=== PATIENT | female | born 1980 | race Caucasian/White ===

== ENCOUNTER 2017-01-04 18:40 | Emergency (ER) | payer MEDICAID, OTHER ==
[~2017-01-04] VITALS: Ht 170.2 cm; Wt 137.5 kg
[~2017-01-04 18:40] MED LIST: AMOX1TAB10 PO; PSEU120T51 PO
[2017-01-04 18:43] VITALS: Ht 170.2 cm; Wt 137.5 kg
[2017-01-04] MEDS ORDERED: ONDANSETRON (ODT) 4 MG TAB ODT STA (19:54)
--- NOTE | 2017-01-04 20:09 | ERD ---
ER Documentation Chief Complaint Date/Time DATE: 01/04/17 TIME: 20:08 Chief Complaint LUQ abd pain x 2 days HPI 36-year-old female presents here in emergency department for complaints of left upper quadrant abdominal pain 2 days. Patient described the pain as sharp pain, 6/10 scale, is her eating accompanied with nausea. Patient denies any vomiting. Patient denies any fever or chills. Patient does not have any diarrhea or constipation. ROS All systems reviewed and are negative except as per history of present illness. Medications Home Meds Active Scripts Pseudoephedrine Hcl (Sudafed 12 Hour) 120 Mg Tablet.sa, 120 MG PO BID for 3 Days Prov:ANTELMO SHEPHERD PA-C 08/19/15 Amox Tr/Potassium Clavulanate (Amox Tr-K Clv 875-125 Mg Tab) 1 Tab Tablet, 1 TAB PO BID, #14 TAB Prov:ANTELMO SHEPHERD PA-C 08/19/15 Allergies Allergies: Coded Allergies: No Known Allergy (Unverified , 01/04/17) PMhx/Soc Medical and Surgical Hx: pt denies Medical Hx, pt denies Surgical Hx History of Surgery: No Anesthesia Reaction: No Hx Neurological Disorder: No Hx Respiratory Disorders: No Hx Cardiac Disorders: No Hx Psychiatric Problems: No Hx Miscellaneous Medical Probl: No Hx Alcohol Use: No Hx Substance Use: No Hx Tobacco Use: No FmHx Family History: No coronary disease, No diabetes, No other Physical Exam Vitals Vital Signs Date Time Temp Pulse Resp B/P Pulse Ox O2 Delivery O2 Flow Rate FiO2 01/04/17 18:43 97.6 88 20 129/71 99 Physical Exam GENERAL: The patient is well developed and appropriate for usual state of health, in no apparent distress. CHEST: Clear to auscultation bilaterally. There are no rales, wheezes or rhonchi. HEART: Regular rate and rhythm. No murmurs, clicks, rubs or gallops. No S3 or S4. ABDOMEN: Soft, nontender and nondistended. Good bowel sounds. No rebound or guarding. No gross peritonitis. No gross organomegaly or masses. No Boggs sign or McBurney point tenderness. BACK: No midline or flank tenderness. EXTREMITIES: Equal pulses bilaterally. There is no peripheral clubbing, cyanosis or edema. No focal swelling or erythema. Full range of motion. Grossly neurovascularly intact. NEURO: Alert and oriented. Cranial nerves 2-12 intact. Motor strength in all 4 extremities with 5/5 strength. Sensation grossly intact. Normal speech and gait. SKIN: There is no apparent rash or petechia. The skin is warm and dry. HEMATOLOGIC AND LYMPHATIC: There is no evidence of excessive bruising or lymphedema. No gross cervical, axillary, or inguinal lymphadenopathy. Result Diagram: 01/04/17201901/04/172019 Results 24 hrs Laboratory Tests Test 01/04/17 20:20 White Blood Count 8.810^3/ul Red Blood Count 4.8010^6/ul Hemoglobin 12.3g/dl Hematocrit 39.6% Mean Corpuscular Volume 82.5fl Mean Corpuscular Hemoglobin 25.6pg Mean Corpuscular Hemoglobin Concent 31.1g/dl Red Cell Distribution Width 14.5% Platelet Count 10410^3/UL Mean Platelet Volume 11.7fl Neutrophils % 40.0% Lymphocytes % 45.9% Monocytes % 8.6% Eosinophils % 5.0% Basophils % 0.3% Nucleated Red Blood Cells % 0.0/100WBC Neutrophils # 3.510^3/ul Lymphocytes # 4.110^3/ul Monocytes # 0.810^3/ul Eosinophils # 0.410^3/ul Basophils # 0.010^3/ul Nucleated Red Blood Cells # 0.010^3/ul Urine Color RANDEE Urine Clarity SLIGHTLY CLOUDY Urine pH 5.0 Urine Specific [place] 1.030 Urine Ketones TRACEmg/dL Urine Nitrite NEGATIVEmg/dL Urine Bilirubin NEGATIVEmg/dL Urine Urobilinogen 2+mg/dL Urine Leukocyte Esterase NEGATIVELeu/ul Urine Microscopic RBC > 182/HPF Urine Microscopic WBC 1/HPF Urine Mucus FEW/HPF Urine Hemoglobin 3+mg/dL Urine Glucose NEGATIVEmg/dL Urine Total Protein NEGATIVEmg/dl Sodium Level 140mmol/L Potassium Level 3.8mmol/L Chloride Level 105mmol/L Carbon Dioxide Level 27mmol/L Anion Gap 12 Blood Urea Nitrogen 9mg/dl Creatinine 0.55mg/dl Glucose Level 79mg/dl Calcium Level 9.5mg/dl Total Bilirubin 0.0mg/dl Direct Bilirubin 0.00mg/dl Indirect Bilirubin 0.0mg/dl Aspartate Amino Transf (AST/SGOT) 18IU/L Alanine Aminotransferase (ALT/SGPT) 24IU/L Alkaline Phosphatase 67IU/L Total Protein 7.5g/dl Albumin 4.0g/dl Globulin 3.50g/dl Albumin/Globulin Ratio 1.14 Lipase 64U/L Current Medications Medications (Trade) Dose Ordered Sig/Juana Route PRN Reason Start Time Stop Time Status Last Admin Dose Admin Ondansetron HCl (Zofran Odt) 4 mg ONCE STAT ODT 01/04/17 19:54 01/04/17 19:55 DC 01/04/17 20:22 Miscellaneous Medication (Gi Cocktail (2)) 40 ml ONCE ONCE PO 01/04/17 21:30 01/04/17 21:31 DC 01/04/17 21:27 Patient was given Zofran here in the emergency department. After treatment, patient was able to tolerate po fluids here in the emergency department without any vomiting. There is no signs and symptoms of dehydration. PROCEDURE: Right upper quadrant abdominal ultrasound. CLINICAL INDICATION: Abdominal pain TECHNIQUE: Clark scale and color doppler ultrasound images of the right upper quadrant of the abdomen. COMPARISON: None FINDINGS: Pancreas: Not adequately visualized due to overlying bowel gas. Liver: Morphology: The right lobe of the liver is elongated measuring up to 19.3 cm which may reflect Kelsie's lobe configuration. Contour:Normal, no evidence of nodularity. Echogenicity: Increased Focal lesions:None. Main portal vein: Patent with hepatopetal flow. Biliary System: Gallbladder wall: Normal thickness. Gallstones: None. Intrahepatic bile ducts: Normal caliber. Common bile duct diameter (mm): 2.1 Kidneys: Right length (cm) : 11.8 Right cortical thickness: Normal. Echogenicity: Normal. Hydronephrosis: None. Renal calculi: None. Focal lesions: None. Free fluid/ascites: None. Abdominal aorta: No radiographic evidence of tuberculosis infection. Other findings: None. IMPRESSION: Normal gallbladder without gallstones. Increased echogenicity of the liver parenchyma suggestive of hepatic steatosis. RPTAT: AADD .Amaury Ledesma MD, MD Date Time Electronically viewed and signed by .Amaury Ledesma MD, on 01/04/2017 20:53 .B/ CC: TYRELL BLUE NP Procedures/MDM Medical Decision Making: Patient's symptoms suspect is consistent with gastritis. Liver function tests are normal, lipase is normal, ultrasound does not show any gallbladder stones. No symptoms of any perforation. Pain is controlled.There is low suspicion for abdominal emergencies at this time. Patients abdominal exam is normal at this time. Patients radiology exam does not show any abdominal emergencies at this time. There is low suspicion for appendicitis, cholecystitis, abdominal aortic aneurysms or peritonitis at this time. There is low suspicion for sepsis. Patient appears well and is hemodynamically stable. Disposition: Home. Condition: Stable Prescription mylanta, omeprazole, tramadol, Zofran Instructions: Patient is advised to take medications as prescribed. Patient is advised to rest, increase fluid intake and do brat diet for next 1-2 days and progress as tolerated. Patient is advised that if symptoms are worse, severe abdominal pain, uncontrolled vomiting, high fever, severe flank pain, worst signs and symptoms, to return to the emergency department immediately. Otherwise, patient can follow up with primary care doctor in 5-7 days. Disclaimer: Inadvertent spelling and grammatical errors are likely due to EHR/ dictation software use and do not reflect on the overall quality of patient care. Also, please note that the electronic time recorded on this note does not necessarily reflect the actual time of the patient encounter. Departure Diagnosis: Primary Impression: Abdominal pain Abdominal location: left upper quadrant Qualified Code: R10.12 - Left upper quadrant pain Condition: Stable Patient Instructions: Gastritis (Adult) Additional Instructions: Patient is advised to take medications as prescribed. Patient is advised to rest , increase fluid intake and do brat diet for next 1-2 days and progress as tolerated. Patient is advised that if symptoms are worse, severe abdominal pain , uncontrolled vomiting, high fever, severe flank pain, worst signs and symptoms , to return to the emergency department immediately. Otherwise, patient can follow up with primary care doctor in 5-7 days. TYRELL BLUE NP Jan 04, 2017 20:09
[2017-01-04 20:52] LABS: BASOPHILS % 0.3 % (0.0-2.0); EOSINOPHILS # 0.4 10^3/ul (0.0-0.5); HEMATOCRIT 39.6 % (37.0-47.0); HEMOGLOBIN 12.3 g/dl (12.0-16.0); LYMPHOCYTES # 4.1 10^3/ul (0.8-2.9); LYMPHOCYTES % 45.9 % (15.0-51.0); MEAN CORPUSCULAR HEMOGLOBIN 25.6 pg (29.0-33.0); MEAN CORPUSCULAR HGB CONC 31.1 g/dl (32.0-37.0); MEAN CORPUSCULAR VOLUME 82.5 fl (82.0-101.0); MEAN PLATELET VOLUME 11.7 fl (7.4-10.4); MONOCYTE # 0.8 10^3/ul (0.3-0.9); MONOCYTES % 8.6 % (0.0-11.0); NEUTROPHIL # 3.5 10^3/ul (1.6-7.5); PLATELET COUNT 343 10^3/UL (140-415); RED CELL DISTRIBUTION WIDTH 14.5 % (11.5-14.5); WHITE BLOOD COUNT 8.8 10^3/ul (4.8-10.8)
--- NOTE | 2017-01-04 20:53 | RADRPT ---
PROCEDURE: Right upper quadrant abdominal ultrasound. CLINICAL INDICATION: Abdominal pain TECHNIQUE: Clark scale and color doppler ultrasound images of the right upper quadrant of the abdom en. COMPARISON: None FINDINGS: Pancreas: Not adequately visualized due to overlying bowel gas. Liver: Morphology: The right lobe of the liver is elongated measuring up to 19.3 cm which may reflect Ried el's lobe configuration. Contour:Normal, no evidence of nodularity. Echogenicity: Increased Focal lesions:None. Main portal vein: Patent with hepatopetal flow. Biliary System: Gallbladder wall: Normal thickness. Gallstones: None. Intrahepatic bile ducts: Normal caliber. Common bile duct diameter (mm): 2.1 Kidneys: Right length (cm) : 11.8 Right cortical thickness: Normal. Echogenicity: Normal. Hydronephrosis: None. Renal calculi: None. Focal lesions: None. Free fluid/ascites: None. Abdominal aorta: No radiographic evidence of tuberculosis infection. Other findings: None. IMPRESSION: Normal gallbladder without gallstones. Increased echogenicity of the liver parenchyma suggestive of hepatic steatosis. RPTAT: AADD .Amaury Ledesma MD, MD Date Time Electronically viewed and signed by .Amaury Ledesma MD, on 01/04/2017 20:53 .B/
[2017-01-04 21:03] LABS: ADD UMIC YES; UR ASCORBIC ACID NEGATIVE (NEGATIVE); UR BILIRUBIN (Dip) NEGATIVE (NEGATIVE); UR BLOOD (Dip) 3+ mg/dL (NEGATIVE); UR CLARITY SLIGHTLY CLOUDY (CLEAR); UR COLOR AMBER (YELLOW); UR GLUCOSE (Dip) NEGATIVE (NEGATIVE); UR KETONES (Dip) TRACE mg/dL (NEGATIVE); UR LEUKOCYTE ESTERASE (Dip) NEGATIVE Leu/ul (NEGATIVE); UR MUCUS FEW /HPF (NONE SEEN); UR NITRITE (Dip) NEGATIVE (NEGATIVE); UR RBC > 182 /HPF (0-5); UR TOTAL PROTEIN (Dip) NEGATIVE (NEGATIVE); UR UROBILINOGEN (Dip) 2+ mg/dL (NEGATIVE)
[2017-01-04 21:10] LABS: ALBUMIN/GLOBULIN RATIO 1.14; CALCIUM 9.5 mg/dl (8.4-10.2); CREATININE 0.55 mg/dl (0.44-1.00); POTASSIUM 3.8 mmol/L (3.5-5.1); TOTAL PROTEIN 7.5 g/dl (6.1-8.1)
[2017-01-04] MEDS ORDERED: LIDOCAINE/MYLANTA 40 ML BTL PO ONE (21:30)
[2017-01-04] MEDS ORDERED: MAG-19 PO (21:43)
[2017-01-04] MEDS ORDERED: TRAM50TA2 PO (21:43)
[2017-01-04] MEDS ORDERED: OMEP20CA16 PO (21:43)
[2017-01-04] MEDS ORDERED: ONDA4TAB14 PO (21:43)
[2017-01-04 22:05] VITALS: BP 120/75; PULSE 76; RESP 18; TEMP 98.2
== END 2017-01-04 22:08 | disposition home or self-care (01) ==
LOC: FTE 18:40
DX: R10.12 Left upper quadrant pain (principal); R11.0 Nausea
CPT/HCPCS: 36415; 76705; 80053; 81001; 83690; 85025; Z7502; Z7610

== ENCOUNTER 2017-01-25 09:31 | Emergency (ER) | payer MEDICAID ==
[~2017-01-25] VITALS: Ht 175.3 cm; Wt 138.5 kg
[~2017-01-25 09:31] MED LIST changes: +MAG-19 PO; +OMEP20CA16 PO; +ONDA4TAB14 PO; +TRAM50TA2 PO
[2017-01-25 09:35] VITALS: Ht 175.3 cm; Wt 138.5 kg
[2017-01-25] MEDS ORDERED: DIPHTH/TET/ACEL PERTUSS (ADULT) 0.5 ML VIAL IM* ONE (10:30)
[2017-01-25] MEDS ORDERED: LIDOCAINE 1% (MDV) 20 ML INJ SC ONE (10:30)
[2017-01-25] MEDS ORDERED: IBUP200C11 PO (11:16)
--- NOTE | 2017-01-25 12:34 | ERD ---
ER Documentation Chief Complaint Date/Time DATE: 01/25/17 TIME: 12:27 Chief Complaint RIGHT HAND LACERATION WHEN WASHING DISHES HPI 36-year-old female complaining of laceration to her right hand at the volar aspect of the right pinky MCP crease. Patient was washing dishes earlier today when a glass cut cut her hand. Use of blood thinners. Has not taken medications for symptoms. Denies alcohol use. Does not recall last tetanus shot. Is right-hand dominant. ROS All systems reviewed and are negative except as per history of present illness. Medications Home Meds Active Scripts Ibuprofen* (Advil*) 200 Mg Capsule, 200 MG PO Q6H Y for PAIN, #30 CAP Prov:CASSY IRIZARRY PA-C 01/25/17 Ondansetron (Ondansetron Odt) 4 Mg Tab.rapdis, 4 MG PO Q8 Y for NAUSEA AND/OR VOMITING, #30 TAB Prov:TYRELL BLUE NP 01/04/17 Tramadol HCl (Tramadol HCl) 50 Mg Tablet, 50 MG PO Q6 Y for PAIN, #20 TAB Prov:TYRELL BLUE NP 01/04/17 Magaldrate/Simethicone* (Mylanta*) 355 Ml Susp, 30 ML PO QID Y for GASTROINTESTINAL UPSET, #1 BOTTLE Prov:TYRELL BLUE NP 01/04/17 Omeprazole* (Omeprazole*) 20 Mg Capsule.dr, 20 MG PO DAILY, #30 Prov:TYRELL BLUE NP 01/04/17 Pseudoephedrine Hcl (Sudafed 12 Hour) 120 Mg Tablet.sa, 120 MG PO BID for 3 Days Prov:ANTELMO SHEPHERD PA-C 08/19/15 Amox Tr/Potassium Clavulanate (Amox Tr-K Clv 875-125 Mg Tab) 1 Tab Tablet, 1 TAB PO BID, #14 TAB Prov:ANTELMO SHEPHERD PA-C 08/19/15 Allergies Allergies: Coded Allergies: No Known Allergy (Unverified , 01/04/17) PMhx/Soc History of Surgery: No Anesthesia Reaction: No Hx Neurological Disorder: No Hx Respiratory Disorders: No Hx Cardiac Disorders: No Hx Psychiatric Problems: No Hx Miscellaneous Medical Probl: No Hx Alcohol Use: No Hx Substance Use: No Hx Tobacco Use: No Physical Exam Vitals Vital Signs Date Time Temp Pulse Resp B/P Pulse Ox O2 Delivery O2 Flow Rate FiO2 01/25/17 09:35 98.2 80 18 144/94 97 Physical Exam GENERAL: The patient is well-appearing, well-nourished, in no acute distress CHEST: Clear to auscultation bilaterally. There are no rales, wheezes or rhonchi. HEART: Regular rate and rhythm. No murmurs, clicks, rubs or gallops. No S3 or S4. EXTREMITIES: Equal pulses bilaterally. There is no peripheral clubbing, cyanosis or edema. No focal swelling or erythema. Full range of motion. Grossly neurovascularly intact. NEUROLOGIC: Motor strength in all 4 extremities with 5 out of 5 strength. Sensation grossly intact. SKIN: The skin is warm and dry. Linear lac to right 2 cm volar aspect of right 5th digit at MCP joint. Results 24 hrs Current Medications Medications (Trade) Dose Ordered Sig/Juaan Route PRN Reason Start Time Stop Time Status Last Admin Dose Admin Diphtheria/ Tetanus/Acell Pertussis (Adacel) 0.5 ml ONCE ONCE IM* 01/25/17 10:30 01/25/17 10:31 DC 01/25/17 10:23 Lidocaine (Xylocaine 1% (Mdv) 20 ml) 20 ml ONCE ONCE SC 01/25/17 10:30 01/25/17 10:31 DC Procedures/MDM Laceration Repair by me: Anesthesia: 1% lidocaine locally Location: right 5th digit - volar aspect MCP joint Tendon/Joint/Nerves: No injury Foreign body: None detected after copious irrigation and exploration Technique: 7 5.0 Nylon Simple Interrupted Sutures Complexity: No subcutaneous sutures/mucosal repair/ edge excision Post Closure Length: 2 cm Patient's bleeding was easily controlled in the department and there is no indication of anemia. No evidence of compartment syndrome, neurologic injury, vascular injury, open joint, tendon laceration, or foreign body. Patient is appropriate for outpatient follow up. 48 hour wound check. Scar minimization instructions given. Tdap given in ED MDM: 36-year-old female coming in for laceration of right digit. I have low suspicion for tendon or ligament injury. I have low suspicion for neurodeficit. Patient has full range of motion of all digits prior to laceration repair. Patient tolerated procedure well. Patient was given tetanus shot in the ED. Patient will return in 2 days for wound check and 7 days for suture removals. All questions answered discharge. Patient discharged with strict ER precautions Departure Diagnosis: Primary Impression: Laceration Condition: Stable Patient Instructions: Laceration, Hand Referrals: COMMUNITY CLINICS YOU HAVE RECEIVED A MEDICAL SCREENING EXAM AND THE RESULTS INDICATE THAT YOU DO NOT HAVE A CONDITION THAT REQUIRES URGENT TREATMENT IN THE EMERGENCY DEPARTMENT. FURTHER EVALUATION AND TREATMENT OF YOUR CONDITION CAN WAIT UNTIL YOU ARE SEEN IN YOUR DOCTORS OFFICE WITHIN THE NEXT 1-2 DAYS. IT IS YOUR RESPONSIBILITY TO MAKE AN APPOINTMENT FOR FOLOW-UP CARE. IF YOU HAVE A PRIMARY DOCTOR --you should call your primary doctor and schedule an appointment IF YOU DO NOT HAVE A PRIMARY DOCTOR YOU CAN CALL OUR PHYSICIAN REFERRAL HOTLINE AT IF YOU CAN NOT AFFORD TO SEE A PHYSICIAN YOU CAN CHOSE FROM THE FOLLOWING [facility] [address] [facility] [address] [facility] [address] [facility] [facility] [address] [facility] [address] [facility]. [facility] [address] Additional Instructions: FOLLOW UP WITH YOUR PRIMARY CARE PHYSICIAN TOMORROW.Return to this facility if you are not improving as expected. CASSY IRIZARRY PA-C Jan 25, 2017 12:34
== END 2017-01-25 11:21 | disposition home or self-care (01) ==
LOC: FTE 09:31
DX: S61.216A Laceration without foreign body of right little finger without damage to nail, initial encounter (principal); W25.XXXA Contact with sharp glass, initial encounter; Y92.9 Unspecified place or not applicable
CPT/HCPCS: 12001; 90471; 90715; Z7502

== ENCOUNTER 2017-06-07 09:39 | Emergency (ER) | END 2017-06-07 10:19 | disposition home or self-care (01) ==

== ENCOUNTER → 2017-10-06 | Emergency (ER) | END | disposition home or self-care (01) ==

== ENCOUNTER 2017-12-16 17:09 | Emergency (ER) | END 2017-12-16 20:48 | disposition home or self-care (01) ==

== ENCOUNTER 2018-03-09 14:58 | Emergency (ER) | END 2018-03-09 17:17 | disposition home or self-care (01) ==